=== PATIENT | male | born 1970 | race Caucasian/White ===

== ENCOUNTER 2017-08-27 20:18 | Inpatient (IN) | payer MEDICAID ==
[2017-08-27] MEDS: BELLADONNA/PHENOBARBITAL TAB PO (23:38)
[2017-08-27] MEDS: ONDANSETRON 4 MG INJ IV (23:38)
[2017-08-27] MEDS: SOD CHLORIDE 0.9% 1,000 ML IV (23:39)
[2017-08-27] MEDS: LIDOCAINE/MYLANTA 40 ML BTL PO (23:39)
[2017-08-27] MEDS: morphine 4 MG/ML VIAL IV (23:39)
[2017-08-27] MEDS: FAMOTIDINE 20 MG TAB PO (23:39)
[2017-08-27 23:46] LABS: ABNORMAL IP MESSAGE 1; HEMATOCRIT 45.7 % (42.0-52.0); HEMOGLOBIN 14.9 g/dl (14.0-18.0); MEAN CORPUSCULAR HEMOGLOBIN 31.2 pg (29.0-33.0); MEAN CORPUSCULAR HGB CONC 32.6 g/dl (32.0-37.0); MEAN CORPUSCULAR VOLUME 95.8 fl (82.0-101.0); MEAN PLATELET VOLUME 10.5 fl (7.4-10.4); PLATELET COUNT 192 10^3/UL (140-415); POSITIVE DIFF @See below; RED BLOOD COUNT 4.77 10^6/ul (4.70-6.10); RED CELL DISTRIBUTION WIDTH 12.4 % (11.5-14.5)
[2017-08-27 23:46] LABS: WHITE BLOOD COUNT 10.4 10^3/ul (4.8-10.8)
[2017-08-27 23:58] LABS: ALANINE AMINOTRANSFERASE 17 IU/L (13-69); ALBUMIN 5.2 g/dl (3.3-4.9); ALBUMIN/GLOBULIN RATIO 1.62; ALKALINE PHOSPHATASE 123 IU/L (42-121); ANION GAP 40 (8-16); ASPARTATE AMINO TRANSFERASE 29 IU/L (15-46); BILIRUBIN,INDIRECT 0.2 mg/dl (0-1.1); BILIRUBIN,TOTAL 0.2 mg/dl (0.2-1.3); BLOOD UREA NITROGEN 6 mg/dl (7-20); CALCIUM 9.4 mg/dl (8.4-10.2); CHLORIDE 93 mmol/L (97-110); CREATININE 0.78 mg/dl (0.61-1.24); GLUCOSE 315 mg/dl (70-220); POTASSIUM 5.3 mmol/L (3.5-5.1); SODIUM 138 mmol/L (135-144); TOTAL PROTEIN 8.4 g/dl (6.1-8.1)
[2017-08-28 00:01] LABS: ADD MAN DIFF? YES
[2017-08-28 00:06] LABS: LIPASE 2307 U/L (23-300)
[2017-08-28 00:12] LABS: CARBON DIOXIDE 10 mmol/L (21-31)
[2017-08-28 00:13] LABS: TROPONIN-I < 0.012 ng/ml (0.000-0.120)
[2017-08-28 00:32] LABS: ETHANOL < 10.0 mg/dl
[2017-08-28] MEDS: SOD CHLORIDE 0.9% 1,000 ML IV ×3 (01:32→04:21)
[2017-08-28 01:43] LABS: BAND NEUTROPHILS #M 1.6 10^3/ul (0.0-0.6); BAND NEUTROPHILS % (M) 16 % (0-4); BASOPHIL #M 0.1 10^3/ul (0.0-0.0); BASOPHILS % (M) 1 % (0-2); LYMPHOCYTES #M 4.1 10^3/ul (0.8-2.9); LYMPHOCYTES % (M) 40 % (15-51); METAMYELOCYTES #M 0.3 10^3/ul (0.0-0.0); METAMYELOCYTES %M 3 % (0-0); MONOCYTE #M 0.9 10^3/ul (0.3-0.9); MONOCYTES % (M) 9 % (0-11); MYELOCYTES #M 0.1 10^3/ul (0.0-0.0); MYELOCYTES % (M) 1 % (0-0); PLATELET ESTIMATE NORMAL; SEG NEUT #M 3.4 10^3/ul (1.6-7.5); SEGMENTED NEUTROPHILS (M) % 31 % (39-77); SMUDGE%M 6 % (0-0)
[2017-08-28] MEDS ORDERED: ONDANSETRON 4 MG INJ IV (03:30)
[2017-08-28] MEDS: ACCU-CHEK XX ×21 (03:30→23:33)
[2017-08-28] MEDS ORDERED: DEXTROSE 50% 50 ML SYRINGE IV ×2 (03:30)
[2017-08-28] MEDS ORDERED: ALBUTEROL/IPRATROPIUM (NEB) 3 ML AMP NEB (03:30)
[2017-08-28 03:46] LABS: AADO2 Arterial 2.5 mmHg (7.0-24.0); Allen Test ACCEPTAB; Arterial Base Excess -23.3 mmol/L (-3.0-3); Arterial COHb 0.4 % (0.0-3.0); Arterial Fraction of Oxyhgb 97.2 % (93.0-99.0); Arterial MetHb 0.4 % (0.0-1.5); Arterial pCO2 13.2 mmhg (35-45); MODE ROOM AIR; Site Right Radial
[2017-08-28] MEDS: morphine 2 MG INJ IV ×5 (04:22→23:38)
[2017-08-28] MEDS: LACTATED RINGER'S 1,000 ML IV (04:34)
[2017-08-28] MEDS: NS + KCL 20 MEQ 1,000 ML IV ×2 (04:34→11:30)
[2017-08-28] MEDS: INSULIN HUMAN REGULAR 100 UNIT in SOD CHLORIDE 0.9% 99 ML IV ×3 (04:42→18:29)
[2017-08-28] MEDS: D5W-0.45 NACL + KCL 20 MEQ 1,000 ML IV ×3 (05:55→15:33)
[2017-08-28 06:08] LABS: ABNORMAL IP MESSAGE 1; HEMATOCRIT 40.4 % (42.0-52.0); HEMOGLOBIN 12.8 g/dl (14.0-18.0); MEAN CORPUSCULAR HEMOGLOBIN 31.2 pg (29.0-33.0); MEAN CORPUSCULAR HGB CONC 31.7 g/dl (32.0-37.0); MEAN CORPUSCULAR VOLUME 98.5 fl (82.0-101.0); MEAN PLATELET VOLUME 8.9 fl (7.4-10.4); PLATELET COUNT 179 10^3/UL (140-415); POSITIVE DIFF @See below; RED CELL DISTRIBUTION WIDTH 12.7 % (11.5-14.5)
[2017-08-28 06:08] LABS: WHITE BLOOD COUNT 12.2 10^3/ul (4.8-10.8)
[2017-08-28 06:19] LABS: ADD MAN DIFF? YES
[2017-08-28 06:44] LABS: ALANINE AMINOTRANSFERASE 25 IU/L (13-69); ALBUMIN 3.6 g/dl (3.3-4.9); ALBUMIN/GLOBULIN RATIO 1.33; ALKALINE PHOSPHATASE 83 IU/L (42-121); ANION GAP 32 (8-16); ASPARTATE AMINO TRANSFERASE 23 IU/L (15-46); BLOOD UREA NITROGEN 5 mg/dl (7-20); CALCIUM 7.8 mg/dl (8.4-10.2); CHLORIDE 107 mmol/L (97-110); CREATININE 0.67 mg/dl (0.61-1.24); GLUCOSE 214 mg/dl (70-220); MAGNESIUM 1.7 mg/dl (1.7-2.5); POTASSIUM 4.1 mmol/L (3.5-5.1); SODIUM 143 mmol/L (135-144); TOTAL PROTEIN 6.3 g/dl (6.1-8.1)
[2017-08-28 06:50] LABS: CARBON DIOXIDE 8 mmol/L (21-31)
[2017-08-28 07:04] LABS: PHOSPHORUS 2.3 mg/dl (2.5-4.9)
[2017-08-28 07:15] LABS: HEMOGLOBIN A1C 13.1 % (0-5.9)
[2017-08-28 07:46] LABS: ANISOCYTOSIS 1+ (0-0); BAND NEUTROPHILS % (M) 17 % (0-4); EOSINOPHILS % (M) 1 % (0-7); ERYTHROBLAST% (NRBC) (M) 8 % (0-0); LYMPHOCYTES #M 5.2 10^3/ul (0.8-2.9); LYMPHOCYTES % (M) 43 % (15-51); MONOCYTE #M 0.6 10^3/ul (0.3-0.9); MONOCYTES % (M) 5 % (0-11); MYELOCYTES #M 0.1 10^3/ul (0.0-0.0); MYELOCYTES % (M) 1 % (0-0); PLATELET ESTIMATE NORMAL; POIKILOCYTOSIS 1+ (0-0); REACTIVE LYMPHOCYTES #M 0.1 10^3/ul (0.0-0.0); REACTIVE LYMPHOCYTES% (M) 1 % (0-0); SEG NEUT #M 4.3 10^3/ul (1.6-7.5); SEGMENTED NEUTROPHILS (M) % 33 % (39-77)
[2017-08-28] MEDS: FAMOTIDINE 20 MG TAB PO (08:31)
[2017-08-28] MEDS: SODIUM PHOSPHATE 30 MMOL in SOD CHLORIDE 0.9% 250 ML IV (10:36)
[2017-08-28 11:27] LABS: MAGNESIUM 1.6 mg/dl (1.7-2.5)
[2017-08-28 11:27] LABS: PHOSPHORUS 1.3 mg/dl (2.5-4.9)
[2017-08-28 11:28] LABS: ANION GAP 21 (8-16); BLOOD UREA NITROGEN 5 mg/dl (7-20); CALCIUM 7.8 mg/dl (8.4-10.2); CARBON DIOXIDE 15 mmol/L (21-31); CHLORIDE 106 mmol/L (97-110); CREATININE 0.56 mg/dl (0.61-1.24); GLUCOSE 193 mg/dl (70-220); POTASSIUM 3.3 mmol/L (3.5-5.1); SODIUM 139 mmol/L (135-144)
[2017-08-28] MEDS: MAGNESIUM SULFATE 2 GM/50 ML 50 ML IVPB ×2 (13:25→17:30)
[2017-08-28 15:13] LABS: MAGNESIUM 1.6 mg/dl (1.7-2.5)
[2017-08-28 15:13] LABS: PHOSPHORUS 1.9 mg/dl (2.5-4.9)
[2017-08-28 15:14] LABS: ANION GAP 20 (8-16); BLOOD UREA NITROGEN 5 mg/dl (7-20); CALCIUM 7.9 mg/dl (8.4-10.2); CARBON DIOXIDE 17 mmol/L (21-31); CHLORIDE 106 mmol/L (97-110); CREATININE 0.47 mg/dl (0.61-1.24); GLUCOSE 195 mg/dl (70-220); POTASSIUM 3.3 mmol/L (3.5-5.1); SODIUM 140 mmol/L (135-144)
[2017-08-28] MEDS: D5W-0.45 NACL + KCL 40 MEQ 1,000 ML IV ×2 (18:24→22:05)
[2017-08-28 19:14] LABS: ANION GAP 16 (8-16); BLOOD UREA NITROGEN 4 mg/dl (7-20); CALCIUM 7.7 mg/dl (8.4-10.2); CARBON DIOXIDE 20 mmol/L (21-31); CHLORIDE 105 mmol/L (97-110); CREATININE 0.42 mg/dl (0.61-1.24); GLUCOSE 174 mg/dl (70-220); MAGNESIUM 2.1 mg/dl (1.7-2.5); PHOSPHORUS 1.7 mg/dl (2.5-4.9); POTASSIUM 3.6 mmol/L (3.5-5.1); SODIUM 137 mmol/L (135-144)
[2017-08-28] MEDS: SODIUM PHOSPHATE 30 MMOL in SOD CHLORIDE 0.9% 250 ML IVPB (20:28)
[2017-08-28 22:25] LABS: ANION GAP 16 (8-16); BLOOD UREA NITROGEN 4 mg/dl (7-20); CARBON DIOXIDE 20 mmol/L (21-31); CHLORIDE 105 mmol/L (97-110); CREATININE 0.41 mg/dl (0.61-1.24); GLUCOSE 155 mg/dl (70-220); POTASSIUM 3.5 mmol/L (3.5-5.1); SODIUM 137 mmol/L (135-144)
[2017-08-29] MEDS: ACCU-CHEK XX ×14 (00:39→20:18)
[2017-08-29] MEDS: D5W-0.45 NACL + KCL 40 MEQ 1,000 ML IV ×2 (02:13→06:17)
[2017-08-29 03:29] LABS: ANION GAP 11 (8-16); BLOOD UREA NITROGEN 4 mg/dl (7-20); CALCIUM 7.8 mg/dl (8.4-10.2); CARBON DIOXIDE 23 mmol/L (21-31); CHLORIDE 110 mmol/L (97-110); CREATININE 0.41 mg/dl (0.61-1.24); GLUCOSE 119 mg/dl (70-220); POTASSIUM 3.6 mmol/L (3.5-5.1); SODIUM 140 mmol/L (135-144)
[2017-08-29 03:32] LABS: PHOSPHORUS 2.2 mg/dl (2.5-4.9)
[2017-08-29 06:15] LABS: PHOSPHORUS 1.7 mg/dl (2.5-4.9)
[2017-08-29 06:23] LABS: ANION GAP 12 (8-16); BLOOD UREA NITROGEN 3 mg/dl (7-20); CARBON DIOXIDE 21 mmol/L (21-31); CHLORIDE 108 mmol/L (97-110); GLUCOSE 119 mg/dl (70-220); MAGNESIUM 2.1 mg/dl (1.7-2.5); PHOSPHORUS 1.6 mg/dl (2.5-4.9); POTASSIUM 3.6 mmol/L (3.5-5.1); SODIUM 137 mmol/L (135-144)
[2017-08-29] MEDS: [UNRECOGNIZED DRUG - REMARK] XX (09:00)
[2017-08-29] MEDS: POTASSIUM PHOSPHATE 30 MM in SOD CHLORIDE 0.9% 250 ML IVPB (09:24)
[2017-08-29] MEDS: INSULIN GLARGINE [LANtus] 3 ML PEN SC (09:51)
[2017-08-29] MEDS: MAGNESIUM SULFATE 2 GM/50 ML 50 ML IVPB (09:56)
[2017-08-29] MEDS: morphine 2 MG INJ IV (11:34)
[2017-08-29] MEDS: INSULIN ASPART [NOVOLOG] 3 ML PEN SC ×5 (11:37→20:17)
[2017-08-29 14:27] LABS: CREATININE, RANDOM URINE 41 mg/dL (20-370); MICROALBUMIN 3.2 mg/dL; MICROALBUMIN/CREATININE RATIO 78 (<30)
[2017-08-29] MEDS ORDERED: POTASSIUM PHOSPHATE 30 MM in SOD CHLORIDE 0.9% 250 ML IVPB (16:00)
[2017-08-29] MEDS: HYDROCODONE/APAP (5/325) TAB PO (20:16)
[2017-08-30] MEDS: ACCU-CHEK XX ×5 (02:00→20:43)
[2017-08-30] MEDS: HYDROCODONE/APAP (5/325) TAB PO ×2 (02:12→08:09)
[2017-08-30 05:51] LABS: ADD MAN DIFF? NO
[2017-08-30 05:53] LABS: BASOPHILS % 0.6 % (0.0-2.0); EOSINOPHILS % 0.8 % (0.0-7.0); HEMATOCRIT 32.8 % (42.0-52.0); HEMOGLOBIN 11.3 g/dl (14.0-18.0); LYMPHOCYTES # 2.7 10^3/ul (0.8-2.9); LYMPHOCYTES % 51.4 % (15.0-51.0); MEAN CORPUSCULAR HGB CONC 34.5 g/dl (32.0-37.0); MEAN CORPUSCULAR VOLUME 89.9 fl (82.0-101.0); MEAN PLATELET VOLUME 9.5 fl (7.4-10.4); MONOCYTE # 0.8 10^3/ul (0.3-0.9); MONOCYTES % 15.9 % (0.0-11.0); NEUTROPHIL # 1.6 10^3/ul (1.6-7.5); NEUTROPHILS % 29.8 % (39.0-77.0); PLATELET COUNT 163 10^3/UL (140-415); RED BLOOD COUNT 3.65 10^6/ul (4.70-6.10); RED CELL DISTRIBUTION WIDTH 12.3 % (11.5-14.5)
[2017-08-30 05:53] LABS: WHITE BLOOD COUNT 5.3 10^3/ul (4.8-10.8)
[2017-08-30 06:18] LABS: ANION GAP 13 (8-16); BLOOD UREA NITROGEN 6 mg/dl (7-20); CALCIUM 8.2 mg/dl (8.4-10.2); CARBON DIOXIDE 28 mmol/L (21-31); CHLORIDE 103 mmol/L (97-110); CREATININE 0.43 mg/dl (0.61-1.24); GLUCOSE 173 mg/dl (70-220); MAGNESIUM 2.2 mg/dl (1.7-2.5); PHOSPHORUS 3.3 mg/dl (2.5-4.9); POTASSIUM 3.5 mmol/L (3.5-5.1); SODIUM 140 mmol/L (135-144)
[2017-08-30] MEDS: INSULIN ASPART [NOVOLOG] 3 ML PEN SC ×7 (08:06→20:47)
[2017-08-30] MEDS: ENOXAPARIN 40 MG/0.4 ML SYG SC (08:07)
[2017-08-30] MEDS ORDERED: GLUCOSE GEL 15 GRAM TUBE PO ×2 (18:30)
[2017-08-30] MEDS ORDERED: DEXTROSE 50% 50 ML SYRINGE IV ×2 (18:30)
[2017-08-30] MEDS ORDERED: GLUCOSE GEL 15 GRAM TUBE BUCCAL (18:30)
[2017-08-30] MEDS ORDERED: GLUCAGON 1 MG INJ IM (18:30)
[2017-08-30] MEDS: ACETAMINOPHEN 325 MG TAB PO (19:01)
[2017-08-31] MEDS: morphine 2 MG INJ IV ×2 (00:01→07:48)
[2017-08-31] MEDS: ACCU-CHEK XX ×5 (01:57→21:00)
[2017-08-31 07:10] LABS: ANION GAP 17 (8-16); BLOOD UREA NITROGEN 11 mg/dl (7-20); CALCIUM 8.6 mg/dl (8.4-10.2); CARBON DIOXIDE 28 mmol/L (21-31); CHLORIDE 99 mmol/L (97-110); CREATININE 0.51 mg/dl (0.61-1.24); GLUCOSE 224 mg/dl (70-220); MAGNESIUM 1.9 mg/dl (1.7-2.5); PHOSPHORUS 3.3 mg/dl (2.5-4.9); POTASSIUM 4.1 mmol/L (3.5-5.1); SODIUM 140 mmol/L (135-144)
[2017-08-31] MEDS: INSULIN ASPART [NOVOLOG] 3 ML PEN SC ×7 (07:50→21:00)
[2017-08-31] MEDS: INSULIN GLARGINE [LANtus] 3 ML PEN SC (07:50)
[2017-08-31] MEDS: ENOXAPARIN 40 MG/0.4 ML SYG SC (09:08)
[2017-08-31 10:52] LABS: LIPASE 875 U/L (23-300)
[2017-08-31] MEDS: HYDROCODONE/APAP (5/325) TAB PO ×3 (14:27→23:50)
[2017-09-01] MEDS: ACCU-CHEK XX ×5 (02:00→21:00)
[2017-09-01 05:39] LABS: ADD MAN DIFF? NO
[2017-09-01 05:47] LABS: WHITE BLOOD COUNT 4.9 10^3/ul (4.8-10.8)
[2017-09-01 05:47] LABS: BASOPHILS % 0.2 % (0.0-2.0); EOSINOPHILS # 0.1 10^3/ul (0.0-0.5); EOSINOPHILS % 1.2 % (0.0-7.0); HEMOGLOBIN 10.6 g/dl (14.0-18.0); LYMPHOCYTES # 2.6 10^3/ul (0.8-2.9); LYMPHOCYTES % 54.1 % (15.0-51.0); MEAN CORPUSCULAR HEMOGLOBIN 31.3 pg (29.0-33.0); MEAN CORPUSCULAR HGB CONC 34.2 g/dl (32.0-37.0); MEAN CORPUSCULAR VOLUME 91.4 fl (82.0-101.0); MEAN PLATELET VOLUME 9.5 fl (7.4-10.4); MONOCYTE # 0.7 10^3/ul (0.3-0.9); MONOCYTES % 14.8 % (0.0-11.0); NEUTROPHIL # 1.4 10^3/ul (1.6-7.5); NEUTROPHILS % 29.1 % (39.0-77.0); PLATELET COUNT 207 10^3/UL (140-415); RED BLOOD COUNT 3.39 10^6/ul (4.70-6.10); RED CELL DISTRIBUTION WIDTH 12.2 % (11.5-14.5)
[2017-09-01 06:39] LABS: ANION GAP 11 (8-16); BLOOD UREA NITROGEN 13 mg/dl (7-20); CALCIUM 8.9 mg/dl (8.4-10.2); CARBON DIOXIDE 31 mmol/L (21-31); CHLORIDE 103 mmol/L (97-110); CREATININE 0.55 mg/dl (0.61-1.24); GLUCOSE 220 mg/dl (70-220); MAGNESIUM 1.8 mg/dl (1.7-2.5); PHOSPHORUS 4.1 mg/dl (2.5-4.9); SODIUM 141 mmol/L (135-144)
[2017-09-01] MEDS: HYDROCODONE/APAP (5/325) TAB PO ×4 (07:58→22:45)
[2017-09-01] MEDS: INSULIN ASPART [NOVOLOG] 3 ML PEN SC ×7 (08:04→20:17)
[2017-09-01] MEDS: INSULIN GLARGINE [LANtus] 3 ML PEN SC (08:04)
[2017-09-01] MEDS: ENOXAPARIN 40 MG/0.4 ML SYG SC (08:04)
[2017-09-02] MEDS: ACCU-CHEK XX ×3 (02:00→11:46)
[2017-09-02] MEDS: INSULIN ASPART [NOVOLOG] 3 ML PEN SC ×5 (02:20→12:12)
[2017-09-02] MEDS: HYDROCODONE/APAP (5/325) TAB PO (07:51)
[2017-09-02] MEDS: INSULIN GLARGINE [LANtus] 3 ML PEN SC (08:36)
[2017-09-02] MEDS: ENOXAPARIN 40 MG/0.4 ML SYG SC (08:40)
[2017-09-02] MEDS: SOD CHLORIDE 0.9% 100 ML (09:47)
[2017-09-02] MEDS: IODIXANOL LOCM 100 ML BTL (09:48)
== END 2017-09-02 14:40 | disposition home or self-care (01) | DRG 438 ==
LOC: E/R 20:18 → MS2 08-29 16:30 → ICU 08-28 03:39
PROVIDERS: Internal Medicine
DX: K85.90 Acute pancreatitis without necrosis or infection, unspecified (principal); E11.10 Type 2 diabetes mellitus with ketoacidosis without coma; K86.3 Pseudocyst of pancreas; Z72.0 Tobacco use; E86.0 Dehydration; Z91.14 Patient's other noncompliance with medication regimen; F10.20 Alcohol dependence, uncomplicated
CPT/HCPCS: 36415; 36600; 74176; 75635; 80048; 80053; 80307; 82043; 82803; 82962; 83036; 83690; 83735; 84100; 84484; 85025; 87081; 93005; 96361; 96374; 96375; 96376; 99285-25

== ENCOUNTER 2017-11-11 18:01 | Emergency (ER) | payer MEDICAID | END 2017-11-11 20:26 | disposition home or self-care (01) | LOC: FTE 18:01 | DX: E11.40 Type 2 diabetes mellitus with diabetic neuropathy, unspecified (principal); Z79.4 Long term (current) use of insulin | CPT/HCPCS: 99283; Z7502 ==

== ENCOUNTER 2018-08-14 11:48 | Inpatient (IN) | payer MEDICAID ==
[2018-08-14] MEDS: ACCU-CHEK XX ×10 (04:32→23:30)
[2018-08-14] MEDS: SOD CHLORIDE 0.9% 750 ML IV (12:34)
[2018-08-14 12:36] LABS: ADD MAN DIFF? NO
[2018-08-14 12:37] LABS: BASOPHILS % 0.5 % (0.0-2.0); EOSINOPHILS % 0.1 % (0.0-7.0); HEMATOCRIT 44.5 % (42.0-52.0); HEMOGLOBIN 14.1 g/dl (14.0-18.0); LYMPHOCYTES # 1.7 10^3/ul (0.8-2.9); LYMPHOCYTES % 20.5 % (15.0-51.0); MEAN CORPUSCULAR HEMOGLOBIN 29.4 pg (29.0-33.0); MEAN CORPUSCULAR HGB CONC 31.7 g/dl (32.0-37.0); MEAN CORPUSCULAR VOLUME 92.9 fl (82.0-101.0); MEAN PLATELET VOLUME 9.8 fl (7.4-10.4); MONOCYTE # 0.6 10^3/ul (0.3-0.9); NEUTROPHIL # 5.7 10^3/ul (1.6-7.5); NEUTROPHILS % 70.4 % (39.0-77.0); PLATELET COUNT 268 10^3/UL (140-415); RED BLOOD COUNT 4.79 10^6/ul (4.70-6.10); RED CELL DISTRIBUTION WIDTH 12.4 % (11.5-14.5)
[2018-08-14 12:37] LABS: WHITE BLOOD COUNT 8.1 10^3/ul (4.8-10.8)
[2018-08-14 13:01] LABS: BLOOD UREA NITROGEN 18 mg/dl (7-20); CALCIUM 9.3 mg/dl (8.4-10.2); CHLORIDE 93 mmol/L (97-110); CREATININE 1.33 mg/dl (0.61-1.24); Estimated GFR 57 mL/min (>60); MAGNESIUM 2.4 mg/dl (1.7-2.5); PHOSPHORUS 5.8 mg/dl (2.5-4.9); SODIUM 131 mmol/L (135-144)
[2018-08-14 13:06] LABS: AADO2 Venous 83.9 mmHg; MODE ROOM AIR; MetHgb Venous 0.3 %; Sample Type Blood venous; Site OTHER; Venous COHb 0.5 %; Venous Fraction OxyHgb 75.1 %; Venous Oxygen Sat 75.7 mmHG (55.0-75.0); Venous Total Hemglobin 14.8 g/dl
[2018-08-14 13:10] LABS: ANION GAP 33 (5-13); POTASSIUM 5.4 mmol/L (3.5-5.1)
[2018-08-14 13:11] LABS: CARBON DIOXIDE < 5 mmol/L (21-31)
[2018-08-14] MEDS ORDERED: D10/0.45% NACL + KCL 40 MEQ 1,000 ML IV (13:11)
[2018-08-14] MEDS ORDERED: NS + KCL 40 MEQ 1,000 ML IV (13:11)
[2018-08-14 13:12] LABS: GLUCOSE 474 mg/dl (70-220)
[2018-08-14] MEDS: SOD CHLORIDE 0.9% 1,000 ML IV ×2 (13:26→17:58)
[2018-08-14] MEDS ORDERED: DEXTROSE 50% 50 ML SYRINGE IV ×2 (13:30)
[2018-08-14 13:35] LABS: HEMOGLOBIN A1C 12.6 % (0-5.9)
[2018-08-14] MEDS: LACTATED RINGER'S 750 ML IV (13:35)
[2018-08-14 13:48] LABS: LIPASE 1248 U/L (23-300)
[2018-08-14] MEDS ORDERED: DEXTROSE 10%/0.45% NACL 1,000 ML IV (14:03)
[2018-08-14 14:09] LABS: TROPONIN-I < 0.012 ng/ml (0.000-0.120)
[2018-08-14] MEDS: INSULIN REGULAR, HUMAN 100 UNIT in SOD CHLORIDE 0.9% 100 ML IV (14:24)
[2018-08-14] MEDS ORDERED: DOCUSATE SODIUM 100 MG CAP PO (14:30)
[2018-08-14] MEDS ORDERED: ALBUTEROL 0.083% (NEB) 2.5 MG/3 ML AMP NEB (14:30)
[2018-08-14] MEDS ORDERED: MAGNESIUM HYDROXIDE 30ML CUP PO (14:30)
[2018-08-14] MEDS ORDERED: hydrALAzine 20 MG INJ IV (14:30)
[2018-08-14] MEDS ORDERED: HYDROCODONE/APAP (5/325) TAB PO ×2 (14:30)
[2018-08-14] MEDS: ONDANSETRON 4 MG INJ IV (14:50)
[2018-08-14] MEDS: morphine 2 MG INJ IV (14:50)
[2018-08-14 15:11] LABS: AADO2 Venous 70.8 mmHg; Allen Test ACCEPTAB; MODE ROOM AIR; MetHgb Venous 0.2 %; Sample Type Blood venous; Site OTHER; Venous COHb 0.6 %; Venous Fraction OxyHgb 81.5 %; Venous Oxygen Sat 82.2 mmHG (55.0-75.0); Venous Total Hemglobin 13.8 g/dl
[2018-08-14 15:17] LABS: ADD UMIC YES; UR ASCORBIC ACID NEGATIVE (NEGATIVE); UR BACTERIA FEW /HPF (NONE SEEN); UR BILIRUBIN (Dip) NEGATIVE (NEGATIVE); UR BLOOD (Dip) 2+ mg/dL (NEGATIVE); UR CLARITY CLEAR (CLEAR); UR COLOR STRAW (YELLOW); UR GLUCOSE (Dip) 3+ mg/dL (NEGATIVE); UR KETONES (Dip) 2+ mg/dL (NEGATIVE); UR LEUKOCYTE ESTERASE (Dip) NEGATIVE Leu/ul (NEGATIVE); UR MUCUS FEW /HPF (NONE SEEN); UR NITRITE (Dip) NEGATIVE (NEGATIVE); UR RBC 0 /HPF (0-5); UR SPECIFIC GRAVITY (Dip) 1.016 (1.003-1.030); UR TOTAL PROTEIN (Dip) 1+ mg/dl (NEGATIVE); UR UROBILINOGEN (Dip) NEGATIVE (NEGATIVE); UR WBC 0 /HPF (0-5)
[2018-08-14 15:32] LABS: BLOOD UREA NITROGEN 17 mg/dl (7-20); CALCIUM 8.2 mg/dl (8.4-10.2); CHLORIDE 102 mmol/L (97-110); CREATININE 0.95 mg/dl (0.61-1.24); Estimated GFR > 60 mL/min (>60); GLUCOSE 368 mg/dl (70-220); MAGNESIUM 2.2 mg/dl (1.7-2.5); PHOSPHORUS 4.6 mg/dl (2.5-4.9); POTASSIUM 5.7 mmol/L (3.5-5.1); SODIUM 134 mmol/L (135-144)
[2018-08-14 15:43] LABS: ANION GAP 27 (5-13)
[2018-08-14 15:46] LABS: CARBON DIOXIDE < 5 mmol/L (21-31)
[2018-08-14] MEDS: DEXTROSE 10%/0.45% NACL 1,000 ML IV (17:00)
[2018-08-14] MEDS: NA BICARBONATE 8.4% 50 ML SYG IV (17:38)
[2018-08-14 18:11] LABS: ANION GAP 28 (5-13); BLOOD UREA NITROGEN 16 mg/dl (7-20); CALCIUM 8.8 mg/dl (8.4-10.2); CHLORIDE 104 mmol/L (97-110); CREATININE 0.82 mg/dl (0.61-1.24); Estimated GFR > 60 mL/min (>60); GLUCOSE 291 mg/dl (70-220); MAGNESIUM 2.3 mg/dl (1.7-2.5); PHOSPHORUS 3.5 mg/dl (2.5-4.9); POTASSIUM 4.6 mmol/L (3.5-5.1); SODIUM 137 mmol/L (135-144)
[2018-08-14 18:15] LABS: CARBON DIOXIDE 5 mmol/L (21-31)
[2018-08-14] MEDS: NS + KCL 30 MEQ 1,000 ML IV (20:49)
[2018-08-14] MEDS: D10/0.45% NACL + KCL 30 MEQ 1,000 ML IV (20:49)
[2018-08-14] MEDS: FAMOTIDINE 20 MG INJ IV (21:05)
[2018-08-14 21:15] LABS: MODE ROOM AIR; MetHgb Venous 0 %; Sample Type Blood venous; Site VENOUS LINE; Venous COHb 0.6 %; Venous Oxygen Sat 80.5 mmHG (55.0-75.0); Venous Total Hemglobin 12.7 g/dl
[2018-08-14] MEDS: SODIUM BICARBONATE (IV ADD) 50 MEQ in DEXTROSE 5% 950 ML IV (21:15)
[2018-08-14 21:30] LABS: ANION GAP 16 (5-13); BLOOD UREA NITROGEN 14 mg/dl (7-20); CALCIUM 8.9 mg/dl (8.4-10.2); CARBON DIOXIDE 13 mmol/L (21-31); CHLORIDE 106 mmol/L (97-110); CREATININE 0.67 mg/dl (0.61-1.24); Estimated GFR > 60 mL/min (>60); GLUCOSE 289 mg/dl (70-220); MAGNESIUM 2.1 mg/dl (1.7-2.5); PHOSPHORUS 0.8 mg/dl (2.5-4.9); POTASSIUM 3.7 mmol/L (3.5-5.1); SODIUM 135 mmol/L (135-144)
[2018-08-15] MEDS: ACCU-CHEK XX ×11 (00:30→10:30)
[2018-08-15 01:06] LABS: AADO2 Venous 54.1 mmHg; MODE ROOM AIR; Site VENOUS LINE
[2018-08-15 01:36] LABS: MetHgb Venous 0 %; Sample Type Blood venous; Venous COHb 1.3 %; Venous Fraction OxyHgb 87.1 %; Venous Oxygen Sat 88.2 mmHG (55.0-75.0); Venous Total Hemglobin 12.3 g/dl
[2018-08-15 01:37] LABS: ANION GAP 9 (5-13); BLOOD UREA NITROGEN 13 mg/dl (7-20); CARBON DIOXIDE 19 mmol/L (21-31); CHLORIDE 107 mmol/L (97-110); CREATININE 0.56 mg/dl (0.61-1.24); Estimated GFR > 60 mL/min (>60); GLUCOSE 219 mg/dl (70-220); MAGNESIUM 2.1 mg/dl (1.7-2.5); POTASSIUM 3.7 mmol/L (3.5-5.1); SODIUM 135 mmol/L (135-144)
[2018-08-15 01:48] LABS: PHOSPHORUS < 0.5 mg/dl (2.5-4.9)
[2018-08-15] MEDS: D10/0.45% NACL + KCL 30 MEQ 1,000 ML IV (05:01)
[2018-08-15] MEDS: NS + KCL 30 MEQ 1,000 ML IV (05:01)
[2018-08-15 05:12] LABS: MODE ROOM AIR; MetHgb Venous 0.3 %; Sample Type Blood venous; Site VENOUS LINE; Venous COHb 1.1 %; Venous Fraction OxyHgb 75.7 %; Venous Oxygen Sat 76.8 mmHG (55.0-75.0); Venous Total Hemglobin 12.5 g/dl
[2018-08-15] MEDS: INSULIN REGULAR, HUMAN 100 UNIT in SOD CHLORIDE 0.9% 100 ML IV (05:34)
[2018-08-15 06:05] LABS: ANION GAP 7 (5-13); BLOOD UREA NITROGEN 12 mg/dl (7-20); CALCIUM 8.5 mg/dl (8.4-10.2); CARBON DIOXIDE 22 mmol/L (21-31); CHLORIDE 107 mmol/L (97-110); CREATININE 0.48 mg/dl (0.61-1.24); Estimated GFR > 60 mL/min (>60); GLUCOSE 213 mg/dl (70-220); MAGNESIUM 2.1 mg/dl (1.7-2.5); PHOSPHORUS 0.6 mg/dl (2.5-4.9); POTASSIUM 3.6 mmol/L (3.5-5.1); SODIUM 136 mmol/L (135-144)
[2018-08-15] MEDS: FAMOTIDINE 20 MG INJ IV ×2 (08:31→21:03)
[2018-08-15] MEDS: SODIUM BICARBONATE (IV ADD) 50 MEQ in DEXTROSE 5% 950 ML IV (08:32)
[2018-08-15] MEDS: INSULIN GLARGINE [LANTus] (100 UNITS/ML) SYG SC ×2 (08:33→10:53)
[2018-08-15] MEDS: ENOXAPARIN 30 MG/0.3 ML SYG SC (08:34)
[2018-08-15 09:11] LABS: LIPASE 1559 U/L (23-300)
[2018-08-15] MEDS ORDERED: LORAZEPAM 2 MG INJ IV (09:30)
[2018-08-15] MEDS ORDERED: INSULIN GLARGINE [LANTus] (100 UNITS/ML) SYG SC (09:30)
[2018-08-15] MEDS: INSULIN ASPART [NOVOLOG] 3 ML PEN SC ×5 (09:39→21:00)
[2018-08-15] MEDS: GABAPENTIN 300 MG CAP PO ×3 (10:43→21:03)
[2018-08-15] MEDS: POTASSIUM PHOSPHATE 30 MM in SOD CHLORIDE 0.9% 250 ML IVPB (10:43)
[2018-08-15] MEDS: SOD CHLORIDE 0.9% 1,000 ML IV ×3 (10:44→21:02)
[2018-08-15] MEDS ORDERED: DEXTROSE 50% 50 ML SYRINGE IV ×2 (11:00)
[2018-08-15] MEDS ORDERED: GLUCAGON 1 MG INJ IM (11:00)
[2018-08-15] MEDS ORDERED: GLUCOSE GEL 15 GRAM TUBE BUCCAL (11:00)
[2018-08-15] MEDS ORDERED: GLUCOSE GEL 15 GRAM TUBE PO ×2 (11:00)
[2018-08-16] MEDS: SOD CHLORIDE 0.9% 1,000 ML IV ×3 (06:30→23:32)
[2018-08-16 07:40] LABS: ADD MAN DIFF? NO
[2018-08-16 07:47] LABS: BASOPHILS % 0.3 % (0.0-2.0); EOSINOPHILS % 0.5 % (0.0-7.0); HEMOGLOBIN 12.4 g/dl (14.0-18.0); LYMPHOCYTES % 30.6 % (15.0-51.0); MEAN CORPUSCULAR HEMOGLOBIN 29.7 pg (29.0-33.0); MEAN CORPUSCULAR HGB CONC 34.4 g/dl (32.0-37.0); MEAN CORPUSCULAR VOLUME 86.3 fl (82.0-101.0); MEAN PLATELET VOLUME 10.5 fl (7.4-10.4); MONOCYTE # 0.5 10^3/ul (0.3-0.9); MONOCYTES % 8.1 % (0.0-11.0); NEUTROPHIL # 3.9 10^3/ul (1.6-7.5); NEUTROPHILS % 60.3 % (39.0-77.0); PLATELET COUNT 159 10^3/UL (140-415); RED BLOOD COUNT 4.17 10^6/ul (4.70-6.10); RED CELL DISTRIBUTION WIDTH 12.5 % (11.5-14.5)
[2018-08-16 07:47] LABS: WHITE BLOOD COUNT 6.5 10^3/ul (4.8-10.8)
[2018-08-16] MEDS: INSULIN ASPART [NOVOLOG] 3 ML PEN SC ×7 (08:00→21:19)
[2018-08-16 08:07] LABS: ALBUMIN 3.1 g/dl (3.3-4.9); ANION GAP 7 (5-13); BLOOD UREA NITROGEN 10 mg/dl (7-20); CALCIUM 8.4 mg/dl (8.4-10.2); CARBON DIOXIDE 24 mmol/L (21-31); CHLORIDE 107 mmol/L (97-110); GLUCOSE 131 mg/dl (70-220); MAGNESIUM 2.1 mg/dl (1.7-2.5); SODIUM 138 mmol/L (135-144)
[2018-08-16] MEDS: GABAPENTIN 300 MG CAP PO ×3 (08:30→21:18)
[2018-08-16] MEDS: ACETAMINOPHEN 325 MG TAB PO (08:30)
[2018-08-16] MEDS: FAMOTIDINE 20 MG INJ IV ×2 (08:31→21:18)
[2018-08-16] MEDS: ENOXAPARIN 30 MG/0.3 ML SYG SC (08:31)
[2018-08-16] MEDS: INSULIN GLARGINE [LANTus] (100 UNITS/ML) SYG SC (08:39)
[2018-08-16] MEDS ORDERED: INSULIN GLARGINE [LANtus] 3 ML PEN SC (09:00)
[2018-08-16 12:26] LABS: HEPATITIS C VIRAL ANTIBODY NEGATIVE (NEGATIVE)
[2018-08-17 01:32] LABS: AMPHETAMINE/METHAMPHETAMINE Negative (NEGATIVE); BARBITURATES Negative (NEGATIVE); BENZODIAZEPINES Negative (NEGATIVE); CANNABINOIDS Negative (NEGATIVE); COCAINE Negative (NEGATIVE); OPIATES Negative (NEGATIVE)
[2018-08-17 06:10] LABS: ADD MAN DIFF? NO
[2018-08-17 06:15] LABS: WHITE BLOOD COUNT 4.7 10^3/ul (4.8-10.8)
[2018-08-17 06:15] LABS: BASOPHILS % 0.4 % (0.0-2.0); EOSINOPHILS # 0.1 10^3/ul (0.0-0.5); EOSINOPHILS % 1.5 % (0.0-7.0); HEMATOCRIT 32.9 % (42.0-52.0); HEMOGLOBIN 11.3 g/dl (14.0-18.0); LYMPHOCYTES # 2.3 10^3/ul (0.8-2.9); LYMPHOCYTES % 49.4 % (15.0-51.0); MEAN CORPUSCULAR HEMOGLOBIN 29.4 pg (29.0-33.0); MEAN CORPUSCULAR HGB CONC 34.3 g/dl (32.0-37.0); MEAN CORPUSCULAR VOLUME 85.7 fl (82.0-101.0); MEAN PLATELET VOLUME 10.4 fl (7.4-10.4); MONOCYTE # 0.4 10^3/ul (0.3-0.9); MONOCYTES % 7.7 % (0.0-11.0); NEUTROPHIL # 1.9 10^3/ul (1.6-7.5); NEUTROPHILS % 40.6 % (39.0-77.0); PLATELET COUNT 168 10^3/UL (140-415); RED BLOOD COUNT 3.84 10^6/ul (4.70-6.10); RED CELL DISTRIBUTION WIDTH 12.6 % (11.5-14.5)
[2018-08-17 06:46] LABS: ALBUMIN 2.5 g/dl (3.3-4.9); ANION GAP 4 (5-13); BLOOD UREA NITROGEN 10 mg/dl (7-20); CARBON DIOXIDE 29 mmol/L (21-31); CHLORIDE 107 mmol/L (97-110); CREATININE 0.38 mg/dl (0.61-1.24); GLUCOSE 195 mg/dl (70-220); PHOSPHORUS 2.6 mg/dl (2.5-4.9); SODIUM 140 mmol/L (135-144)
[2018-08-17 06:56] LABS: POTASSIUM 2.9 mmol/L (3.5-5.1)
[2018-08-17 06:57] LABS: AMYLASE 60 U/L (11-123)
[2018-08-17 06:57] LABS: LIPASE 393 U/L (23-300)
[2018-08-17] MEDS: POTASSIUM CHLORIDE (SR) 20 MEQ TAB PO ×3 (07:11→14:35)
[2018-08-17] MEDS: SOD CHLORIDE 0.9% 1,000 ML IV (07:13)
[2018-08-17] MEDS: FAMOTIDINE 20 MG INJ IV (08:21)
[2018-08-17] MEDS: GABAPENTIN 300 MG CAP PO ×2 (08:21→12:08)
[2018-08-17] MEDS: INSULIN ASPART [NOVOLOG] 3 ML PEN SC ×4 (08:23→12:08)
[2018-08-17] MEDS: ENOXAPARIN 30 MG/0.3 ML SYG SC (08:24)
[2018-08-17] MEDS ORDERED: POTASSIUM CHLORIDE 50 ML IVPB (08:30)
[2018-08-17] MEDS: POTASSIUM CHLORIDE 50 ML IVPB (09:29)
[2018-08-17] MEDS: INSULIN GLARGINE [LANTus] (100 UNITS/ML) SYG SC (09:32)
[2018-08-17 13:54] LABS: ANION GAP 6 (5-13); BLOOD UREA NITROGEN 8 mg/dl (7-20); CALCIUM 8.9 mg/dl (8.4-10.2); CARBON DIOXIDE 32 mmol/L (21-31); CHLORIDE 103 mmol/L (97-110); CREATININE 0.42 mg/dl (0.61-1.24); Estimated GFR > 60 mL/min (>60); GLUCOSE 112 mg/dl (70-220); POTASSIUM 3.4 mmol/L (3.5-5.1); SODIUM 141 mmol/L (135-144)
== END 2018-08-17 16:35 | disposition home or self-care (01) | DRG 637 ==
LOC: PP2 08-15 13:30 → E/R 11:48 → ICU 14:03
PROVIDERS: Internal Medicine
DX: E11.10 Type 2 diabetes mellitus with ketoacidosis without coma (principal); K85.90 Acute pancreatitis without necrosis or infection, unspecified; E87.2 Acidosis; Z79.4 Long term (current) use of insulin; Z91.14 Patient's other noncompliance with medication regimen; E11.40 Type 2 diabetes mellitus with diabetic neuropathy, unspecified; E11.65 Type 2 diabetes mellitus with hyperglycemia; I10 Essential (primary) hypertension; R10.13 Epigastric pain; E78.5 Hyperlipidemia, unspecified; F10.10 Alcohol abuse, uncomplicated; E87.6 Hypokalemia
CPT/HCPCS: 36415; 71045; 80048; 80069; 80307; 81001; 82150; 82803; 82962; 83036; 83690; 83735; 84100; 84484; 85025; 86803; 87081; 93005; 99285-25